=== PATIENT | male | born 1995 ===

== ENCOUNTER 2019-04-05 21:55 | Emergency (ER) | payer SELFPAY ==
[2019-04-05 22:01] VITALS: BP 143/83
== END 2019-04-06 03:15 | disposition left against medical advice (07) ==
LOC: ED 21:55
DX: S91.012A Laceration without foreign body, left ankle, initial encounter (principal); Z53.21 Procedure and treatment not carried out due to patient leaving prior to being seen by health care provider; X58.XXXA Exposure to other specified factors, initial encounter; Y93.89 Activity, other specified; Y92.89 Other specified places as the place of occurrence of the external cause; Y99.8 Other external cause status